=== PATIENT | female | born 1945 ===

== ENCOUNTER 2021-04-19 10:30 | Inpatient (IN) | payer OTHER ==
[~2021-04-19] VITALS: Ht 149.9 cm; Wt 65.3 kg
[2021-04-19] MEDS ORDERED: ATACAND HCT 161 EACH PO (16:57)
[2021-04-27] MEDS ORDERED: PERCOCET 5-3251 EACH PO (15:50)
== END 2021-04-27 17:27 | disposition home or self-care (01) | DRG 331 ==
LOC: SURH 04-25 06:24 → O/R 04-25 06:24 → SURH 04-25 10:30
PROVIDERS: ADMIT Colon & Rectal Surgery; ATTEND Colon & Rectal Surgery
PROC: 07BC3ZX Excision of Pelvis Lymphatic, Percutaneous Approach, Diagnostic (ICD-10-PCS; 2021-04-25)
PROC: 0DBU4ZZ Excision of Omentum, Percutaneous Endoscopic Approach (ICD-10-PCS; 2021-04-25)
PROC: 3E0F7SF Introduction of Other Gas into Respiratory Tract, Via Natural or Artificial Opening (ICD-10-PCS; 2021-04-25)
PROC: 0DTF4ZZ Resection of Right Large Intestine, Percutaneous Endoscopic Approach (ICD-10-PCS; principal; 2021-04-25 14:00)
DX: D12.2 Benign neoplasm of ascending colon (principal); Z20.822 Contact with and (suspected) exposure to COVID-19; E78.5 Hyperlipidemia, unspecified; E87.6 Hypokalemia; Z86.010 Personal history of colon polyps